=== PATIENT | male | born 1945 | race Caucasian/White ===

== ENCOUNTER → 2024-04-18 14:47 | Outpatient (REF) | payer MEDICARE, SELFPAY ==
[2024-04-18 17:15] LABS: ALT (SGPT) 28 U/L (0-50); AST (SGOT) 29 U/L (17-59); Albumin 4.7 g/dl (3.5-5.0); Alkaline Phosphatase 56 U/L (38-126); Blood Urea Nitrogen 21 mg/dl (9-20); Calcium 10.1 mg/dl (8.4-10.2); Carbon Dioxide 27 mmol/L (22-30); Chloride 105 mmol/L (98-107); Glucose 95 mg/dl (70-99); Potassium 6.1 mmol/L (3.5-5.1); Sodium 144 mmol/L (135-145); Total Bilirubin 0.6 mg/dl (0.2-1.3); Total Protein 7.3 g/dl (6.3-8.2); eGFR 55.53
== END ==
LOC: REG 14:47
PROVIDERS: ATTENDING PHYSICIAN Ophthalmology; FAMILY PHYSICIAN Internal Medicine
DX: H02.883 Meibomian gland dysfunction of right eye, unspecified eyelid (principal); H02.886 Meibomian gland dysfunction of left eye, unspecified eyelid; H04.123 Dry eye syndrome of bilateral lacrimal glands; H35.363 Drusen (degenerative) of macula, bilateral; H47.213 Primary optic atrophy, bilateral
CPT/HCPCS: 36415; 80053; 82565

== ENCOUNTER → 2024-04-19 14:09 | Outpatient (REF) | payer MEDICARE, SELFPAY | LOC: HWRAD 14:09 | PROVIDERS: ATTENDING PHYSICIAN Ophthalmology; FAMILY PHYSICIAN Internal Medicine | DX: H47.213 Primary optic atrophy, bilateral (principal) | CPT/HCPCS: 70470; Q9967 ==

== ENCOUNTER → 2024-06-27 07:11 | Outpatient (REF) | payer MEDICARE, SELFPAY ==
[2024-06-27 08:57] LABS: Urine Albumin Negative (Neg - Trace); Urine Bilirubin Negative (Negative); Urine Character Clear (Clear); Urine Color Yellow; Urine Glucose Negative (Negative); Urine Ketone Negative (Negative); Urine Leukocyte Negative (Negative); Urine Nitrite Negative (Negative); Urine Occult Blood Negative (Negative); Urine Urobilinogen Negative (Neg - 1+)
[2024-06-27 09:29] LABS: Blood Urea Nitrogen 24 mg/dl (9-20); Calcium 9.7 mg/dl (8.4-10.2); Carbon Dioxide 26 mmol/L (22-30); Chloride 104 mmol/L (98-107); Glucose 92 mg/dl (70-99); Potassium 5.1 mmol/L (3.5-5.1); Sodium 143 mmol/L (135-145); eGFR > 60.00
[2024-06-27 10:23] LABS: FSH 4.6 mIU/ml (1.55-9.74); Free T4 0.83 ng/dl (0.78-2.19); Prolactin 19.6 ng/ml (3.7-17.9)
[2024-06-27 10:44] LABS: Cortisol, Random 15.3 ug/dl
[2024-06-28 21:39] LABS: Adrenocorticotropic Hormone 26.3 pg/mL (7.2-63.3)
[2024-06-28 23:32] LABS: Growth Hormone 0.13 ng/mL (0.05-3.00)
[2024-06-29 02:16] LABS: IGF-1 Z Score Calculation -0.2; Insulin-like Growth Factor I 74 ng/mL (18-184)
[2024-06-29 02:45] LABS: % Free Testosterone 1.4 % (1.6-2.9); Free Testosterone 44 pg/mL (47-244); Sex Hormone Binding Globulin 50 nmol/L (19-76); Testosterone, Bioavailable 129 ng/dL (131-682); Total Testosterone 321 ng/dL (300-720)
== END ==
LOC: REG 07:11
PROVIDERS: ATTENDING PHYSICIAN Neurological Surgery
DX: D35.2 Benign neoplasm of pituitary gland (principal)
CPT/HCPCS: 36415; 80048; 81003; 82024; 82533; 83001; 83003; 84146; 84270; 84305; 84402; 84403; 84439; 84443